=== PATIENT | female | born 1985 | race Caucasian/White ===

== ENCOUNTER 2019-02-12 17:58 | Emergency (ER) | payer OTHER ==
[~2019-02-12] VITALS: Ht 167.6 cm; Wt 59.0 kg
[2019-02-12 18:24] VITALS: BP 162/92
[2019-02-12] MEDS ORDERED: IBUP-1007 PO (20:09)
--- NOTE | 2019-02-12 20:09 | PHYS DOC ---
Past Medical History Past Medical History: Endometriosis, Seizure, Other Additional Past Medical Histor: HYPOGLYCEMIA (RAFAEL AYALA APRN) Past Surgical History: Appendectomy, Cholecystectomy, Other Additional Past Surgical Histo: MULT LAPAROSCOPIES (RAFAEL AYALA APRN) Alcohol Use: Occasionally Drug Use: None (RAFAEL AYALA APRN) Attending Signature I have participated in the care of this patient and I have reviewed and agree with all pertinent clinical information above including history, exam, and recommendations. (QUOC MONTERROSO MD) Adult General Chief Complaint Chief Complaint: RIB PAIN HPI HPI Patient is a 33 year old female who presents with 3 weeks of left rib pain and hurts when she takes a deep breath or with movement only. 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 Patient states she notices it hurts only with movement or if she sneezes or coughs. Patient rates her pain a 5 out of 10. She states she has been taking Advil to help her pain. (RAFAEL AYALA APRN) Review of Systems Review of Systems Musculoskeletal: Left rib pain. Denies back pain or joint pain [] All other systems were reviewed and found to be within normal limits, except as documented in this note. (RAFAEL AYALA APRN) Allergies Allergies Allergies Coded Allergies Type Severity Reaction Last Updated Verified Penicillins Allergy Intermediate 10/01/18 Yes Uncoded Allergies Type Severity Reaction Last Updated Verified MSG IN FOOD Allergy Unknown 10/01/18 (QUOC MONTERROSO MD) Physical Exam Physical Exam Constitutional: Well developed, well nourished, no acute distress, non-toxic appearance. [] HENT: Normocephalic, atraumatic, bilateral external ears normal, oropharynx moist, no oral exudates, nose normal. [] Eyes: PERRLA, EOMI, conjunctiva normal, no discharge. [] Neck: Normal range of motion, no tenderness, supple, no stridor. [] Cardiovascular:Heart rate regular rhythm, no murmur [] Lungs & Thorax: Bilateral breath sounds clear to auscultation [] Abdomen: Bowel sounds normal, soft, no tenderness, no masses, no pulsatile masses. [] Skin: Warm, dry, no erythema, no rash. [] Back: No tenderness, no CVA tenderness. [] Extremities: No tenderness, no cyanosis, no clubbing, ROM intact, no edema. [] Neurologic: Alert and oriented X 3, normal motor function, normal sensory function, no focal deficits noted. [] Psychologic: Affect normal, judgement normal, mood normal. [] Normal Physical Exam (RAFAEL AYALA APRN) Current Patient Data Vital Signs Vital Signs Date Time Temp Pulse Resp B/P (MAP) Pulse Ox O2 Delivery O2 Flow Rate FiO2 02/12/19 18:24 98.9 96 18 162/92 (115) 99 Room Air 98.9 (QUOC MONTERROSO MD) EKG EKG [] (RAFAEL AYALA APRN) Radiology/Procedures Radiology/Procedures [] (RAFAEL AYALA APRN) Course & Med Decision Making Course & Med Decision Making Lungs are clear to auscultation in all lobes. No tenderness with palpation to patient's left ribs on her chest. No crepitus felt. There is no deformity or bruising or abrasions. Patient denies any injury. Vital signs within normal limits. Ambulatory with a steady gait. Skin pink warm and dry. Speaks in full clear sentences. Patient denies abdominal pain, nausea, vomiting, dysuria, flank pain, numbness or tingling, headache, dizziness, pleuritic chest pain, chest pain, shortness of breath, weakness, fevers, recent illness, fall. X-ray shows no acute findings. Patient is provided with incentive spirometry and education. (RAFAEL AYALA APRN) Dragon Disclaimer Dragon Disclaimer This electronic medical record was generated, in whole or in part, using a voice recognition dictation system. (RAFAEL AYALA APRN) Departure Departure Impression: Primary Impression: Rib pain Disposition: HOME, SELF-CARE Condition: STABLE Referrals: NO PCP (PCP) Patient Instructions: Muscle Strain Additional Instructions: Take 4 ibuprofen at a time every 8 hours. Use a heating pad. Try Avoid any heavy lifting. Scripts Ibuprofen (IBUPROFEN) 600 Mg Tablet 800 MG PO PRN Q8HRS PRN for INFLAMMATION, #20 TAB Prov: RAFAEL AYALA APRN 02/12/19 RAFAEL AYALA APRN Feb 12, 2019 20:09 QUOC MONTERROSO MD Feb 13, 2019 05:01
--- NOTE | 2019-02-12 20:13 | RAD ---
RIBS LEFT AND PA CHEST History: Rib pain. TECHNIQUE: PA view the chest and 3 additional views of the left ribs. Comparison: None. Findings: No consultation or pleural effusion. Normal heart size. No pneumothorax. No displaced rib fractures. Impression: 1. No acute cardiopulmonary process. No displaced rib fractures. Electronically signed by: Geovanny Jean DO (02/12/2019 8:10 PM) [facility]
== END 2019-02-12 20:15 | disposition home or self-care (01) ==
LOC: ER 17:58
DX: R07.81 Pleurodynia (principal); Z88.0 Allergy status to penicillin; Z91.018 Allergy to other foods
CPT/HCPCS: 71101; 99284